=== PATIENT | female | born 2000 | race Two or more races ===

== ENCOUNTER → 2020-01-02 | Outpatient (CLI) | payer MEDICAID ==
--- NOTE | 2020-01-02 15:31 | Non Stress Test Report ---
Non Stress Test Datetime Report Generated by CPN: 01/02/2020 15:31 DEMOGRAPHIC EGA NST: 40.1 INDICATION Indication for Study (NST) Other: IUP at VITAL SIGNS Temperature - NST: 97.8 Pulse - NST: 96 RESP - NST: 18 NBPSYS NST: 111 NBPDIA NST: 70 URINE RESULTS Urine Ketones - NST: Positive MONITORING Monitor Explained: Monitor Explained; Test Explained; Patient Verbalized Understanding Time on Monitor: 01/02/2020 14:51 Time off Monitor: 01/02/2020 15:14 NST Duration: 23 NST INTERVENTIONS NST Interventions: PO Hydration Physician Notified NST: Iraida Pathak, CNM BABY A: [id number] BABY A Movement : Present Contraction Frequency : x2 FHR Baseline : 125 Accelerations : 15X15 Decelerations : None Variability : Moderate 6-25bpm NST Review: Meets Criteria for Reactive NST NST Review and Verified By : Patrica Camp RNC NST Results: Reactive NST REPORT Report Trigger: Send Report
== END ==
LOC: LC 14:43
PROVIDERS: ATTEND Obstetrics & Gynecology
DX: O48.0 Post-term pregnancy (principal); Z3A.40 40 weeks gestation of pregnancy
CPT/HCPCS: 59025

== ENCOUNTER 2020-01-07 03:03 | Outpatient (CLI) | payer MEDICAID ==
[2020-01-07 03:42] LABS: APPEARANCE,URINE CLEAR; BILIRUBIN,URINE NEGATIVE (NEGATIVE); COLOR,URINE YELLOW; GLUCOSE, URINE NEGATIVE (NEGATIVE); KETONES,URINE NEGATIVE (NEGATIVE); LEUKOCYTE ESTERASE,URINE NEGATIVE (NEGATIVE); NITRITE,URINE NEGATIVE (NEGATIVE); PROTEIN,URINE NEGATIVE (NEGATIVE); URINE SPECIFIC GRAVITY 1.015; UROBILINOGEN,URINE NEGATIVE mg/dL (<2.0)
[2020-01-07 04:03] LABS: URINE AMPHETAMINES SCREEN NEGATIVE; URINE BARBITURATES SCREEN NEGATIVE; URINE BENZODIAZEPINES SCREEN NEGATIVE; URINE COCAINE SCREEN NEGATIVE; URINE MARIJUANA (THC) SCREEN NEGATIVE; URINE METHADONE SCREEN NEGATIVE; URINE PHENCYCLIDINE SCREEN NEGATIVE
--- NOTE | 2020-01-07 04:35 | Non Stress Test Report ---
Non Stress Test Datetime Report Generated by CPN: 01/07/2020 04:34 DEMOGRAPHIC EGA NST: 40.6 INDICATION Indication for Study (NST) Other: labor check URINE RESULTS Urine Protein, NST: Negative Urine Ketones - NST: Negative Urine Glucose - NST: Negative Urine Blood - NST: Negative MONITORING Monitor Explained: Monitor Explained; Test Explained; Patient Verbalized Understanding Time on Monitor: 01/07/2020 03:27 Time off Monitor: 01/07/2020 04:29 NST INTERVENTIONS NST Interventions: PO Hydration Physician Notified NST: Simpson BABY A: [id number] BABY A Movement : Present Contraction Frequency : 2-6 FHR Baseline : 125 Accelerations : 15X15 Variability : Moderate 6-25bpm NST Review: Meets Criteria for Reactive NST NST Review and Verified By : Adán Gli RN NSMarcin Results: Reactive NST REPORT Report Trigger: Send Report
[2020-01-07 05:41] LABS: ABSOLUTE EOSINOPHILS # (AUTO) 0.1 10^3/uL (0.0-0.6); ABSOLUTE LYMPHOCYTES (AUTO) 1.9 10^3/uL (0.5-4.7); ABSOLUTE MONOCYTES (AUTO) 1.4 10^3/uL (0.1-1.4); ABSOLUTE NEUT (AUTO) 15.3 10^3/uL (1.7-8.2); BASOPHILS % (AUTO) 0.1 % (0-2); EOSINOPHILS % (AUTO) 0.5 % (0-6); HEMATOCRIT 37.6 % (36.0-47.0); HEMOGLOBIN 12.8 g/dL (12.0-15.5); LYMPHOCYTES % (AUTO) 10.2 % (13-45); MEAN CORPUSCULAR HEMOGLOBIN 30.2 pg (27.0-33.4); MEAN CORPUSCULAR HGB CONC 33.9 g/dL (32.0-36.0); MEAN CORPUSCULAR VOLUME 89 fl (80-97); MONOCYTES % (AUTO) 7.4 % (3-13); PLATELET COUNT 209 10^3/uL (150-450); RED BLOOD COUNT 4.22 10^6/uL (3.72-5.28); SEGMENTED NEUTROPHILS % (AUTO) 81.8 % (42-78); TOTAL CELLS COUNTED % (AUTO) 100 %; WHITE BLOOD COUNT 18.8 10^3/uL (4.0-10.5)
[2020-01-07 05:53] LABS: ALBUMIN 3.6 g/dL (3.5-5.0); ALKALINE PHOSPHATASE 245 U/L (38-126); ANION GAP 10 (5-19); ASPARTATE AMINO TRANSFERASE 28 U/L (14-36); BILIRUBIN,DIRECT 0.2 mg/dL (0.0-0.4); BILIRUBIN,TOTAL 0.6 mg/dL (0.2-1.3); BLOOD UREA NITROGEN 9 mg/dL (7-20); CALCIUM 9.3 mg/dL (8.4-10.2); CARBON DIOXIDE 21 mmol/L (22-30); CHLORIDE 105 mmol/L (98-107); GLUCOSE 92 mg/dL (75-110); POTASSIUM 4.2 mmol/L (3.6-5.0); TOTAL PROTEIN 6.9 g/dL (6.3-8.2); URIC ACID 5.2 mg/dL (2.5-6.2)
== END 2020-01-07 06:20 | disposition home or self-care (01) ==
LOC: LC 03:03
PROVIDERS: ATTEND Student in an Organized Health Care Education/Training Program
DX: O47.1 False labor at or after 37 completed weeks of gestation (principal); Z3A.40 40 weeks gestation of pregnancy
CPT/HCPCS: 36415; 59025; 80053; 80307; 81005; 83615; 84550; 85025

== ENCOUNTER 2020-01-08 17:59 | Outpatient (CLI) | payer MEDICAID ==
[2020-01-08 20:23] LABS: APPEARANCE,URINE CLOUDY; BILIRUBIN,URINE NEGATIVE (NEGATIVE); COLOR,URINE AMBER; GLUCOSE, URINE NEGATIVE (NEGATIVE); KETONES,URINE 20 mg/dL (NEGATIVE); LEUKOCYTE ESTERASE,URINE SMALL (NEGATIVE); NITRITE,URINE NEGATIVE (NEGATIVE); PROTEIN,URINE 100 mg/dL (NEGATIVE); URINE SPECIFIC GRAVITY 1.025
[2020-01-08 20:38] LABS: URINE AMPHETAMINES SCREEN NEGATIVE; URINE BARBITURATES SCREEN NEGATIVE; URINE BENZODIAZEPINES SCREEN NEGATIVE; URINE COCAINE SCREEN NEGATIVE; URINE MARIJUANA (THC) SCREEN NEGATIVE; URINE METHADONE SCREEN NEGATIVE; URINE PHENCYCLIDINE SCREEN NEGATIVE
[2020-01-08] MEDS ORDERED: HYDROXYZINE PAMOATE 50 MG CAPSULE ONE (22:15)
[2020-01-08] MEDS ORDERED: HYDROXYZINE PAMOATE 50 MG CAPSULE PO ONE (22:30)
--- NOTE | 2020-01-08 22:33 | Non Stress Test Report ---
Non Stress Test Datetime Report Generated by CPN: 01/08/2020 22:33 DEMOGRAPHIC EGA NST: 41.0 INDICATION Indication for Study (NST) Other: Gestational age greater than 32 weeks VITAL SIGNS Temperature - NST: 97.1 Pulse - NST: 104 RESP - NST: 17 NBPSYS NST: 124 NBPDIA NST: 73 URINE RESULTS Urine Protein, NST: Negative Urine Ketones - NST: Positive Urine Glucose - NST: Negative Urine Blood - NST: Negative MONITORING Monitor Explained: Monitor Explained; Test Explained; Patient Verbalized Understanding Time on Monitor: 01/08/2020 21:27 Time off Monitor: 01/08/2020 22:13 NST INTERVENTIONS NST Interventions: None Physician Notified NST: Dr. Aron BABY A: [id number] BABY A Movement : Present Contraction Frequency : 5-9 FHR Baseline : 125 Accelerations : 15X15 Decelerations : None Variability : Moderate 6-25bpm NST Review: Meets Criteria for Reactive NST NST Review and Verified By : Yandel Berger RN NST Results: Reactive NST REPORT Report Trigger: Send Report
== END 2020-01-08 22:22 | disposition home or self-care (01) ==
LOC: LC 17:59
PROVIDERS: ATTEND Obstetrics & Gynecology
DX: O47.1 False labor at or after 37 completed weeks of gestation (principal); O48.0 Post-term pregnancy; Z3A.41 41 weeks gestation of pregnancy
CPT/HCPCS: 59025; 81001; 80307; J3490

== ENCOUNTER 2020-01-09 04:27 | Inpatient (IN) | payer MEDICAID ==
[2020-01-09] MEDS ORDERED: RINGERS SOLUTION,LACTATED 1,000 ML IV PRN (04:38)
[2020-01-09] MEDS ORDERED: RINGERS SOLUTION,LACTATED 1,000 ML IV ONE (04:38)
[2020-01-09 05:22] LABS: HEMATOCRIT 39.2 % (36.0-47.0); HEMOGLOBIN 13.7 g/dL (12.0-15.5); MEAN CORPUSCULAR HEMOGLOBIN 30.9 pg (27.0-33.4); MEAN CORPUSCULAR HGB CONC 35.1 g/dL (32.0-36.0); MEAN CORPUSCULAR VOLUME 88 fl (80-97); PLATELET COUNT 222 10^3/uL (150-450); RED BLOOD COUNT 4.45 10^6/uL (3.72-5.28); WHITE BLOOD COUNT 17.5 10^3/uL (4.0-10.5)
[2020-01-09] MEDS ORDERED: OXYTOCIN 10 UNIT/ML VIAL ONE (05:29)
[2020-01-09] MEDS ORDERED: LIDOCAINE 1% INJ-PF (10 MG/ML) 30 ML SDV ONE (05:29)
[2020-01-09] MEDS ORDERED: MISOPROSTOL 0.2 MG TABLET ONE (05:29)
[2020-01-09] MEDS ORDERED: OXYTOCIN/0.9 % SODIUM CHLORIDE 30 UNIT/500 ML RTUINJ ONE (05:29)
[2020-01-09 05:38] LABS: ABSOLUTE LYMPHOCYTES# (MANUAL) 1.4 10^3/uL (0.5-4.7); ABSOLUTE MONOCYTES # (MANUAL) 0.4 10^3/uL (0.1-1.4); BAND NEUTROPHILS % (MANUAL) 1 % (3-5); BASOPHILS % (MANUAL) 0 % (0-2); EOSINOPHILS % (MANUAL) 0 % (0-6); LYMPHOCYTES % (MANUAL) 8 % (13-45); MONOCYTES % (MANUAL) 2 % (3-13); SEGMENTED NEUTROPHILS % (MAN) 89 % (42-78); TOTAL CELLS COUNTED 100
[2020-01-09 05:39] LABS: PLATELET COMMENT ADEQUATE; RBC MORPHOLOGY COMMENT NORMO-CYTIC/CHROMIC
[2020-01-09] MEDS ORDERED: EPHEDRINE SULFATE INJ 50 MG/1 ML AMPULE ONE (05:46)
[2020-01-09] MEDS ORDERED: ROPIVACAINE HCL 0.2% INJ/PF (2 MG/ML) 20 ML SDV ONE (05:46)
[2020-01-09] MEDS ORDERED: FENTANYL/BUPIVACAINE/NS/PF 300 MCG/150 ML RTUINJ EPI ONE (05:46)
[2020-01-09 06:19] LABS: APPEARANCE,URINE TURBID; BILIRUBIN,URINE NEGATIVE (NEGATIVE); COLOR,URINE RED; GLUCOSE, URINE NEGATIVE (NEGATIVE); KETONES,URINE TRACE mg/dL (NEGATIVE); LEUKOCYTE ESTERASE,URINE SMALL (NEGATIVE); NITRITE,URINE POSITIVE (NEGATIVE); PROTEIN,URINE 100 mg/dL (NEGATIVE); URINE SPECIFIC GRAVITY 1.008; UROBILINOGEN,URINE NEGATIVE mg/dL (<2.0)
--- NOTE | 2020-01-09 07:48 | Admission Physical ---
Datetime Report Generated by CPN: 01/09/2020 07:48 CURRENT ADMISSION Chief Complaint: Uterine Contractions; Suspected Ruptured Membranes Indication for Induction: Not Applicable Admit Impression : Postterm, Intrauterine ; Active Labor; Ruptured Membranes Admit Plan: Admit to Unit; Initiate Labor Protocol ALLERGIES Medication Allergies: No Medication Allergies: No Known Allergies (01/02/2020) Latex: No Latex Allergies Food Allergies: None Environmental Allergies: None OBSTETRICAL HISTORY EDC: 01/01/2020 00:00 : 1 Para: 0 Term: 0 : 0 SAB: 0 IAB: 0 Ectopic: 0 Livin Cesareans: 0 VBACs: 0 Multiple Births: 0 Gestational Diabetes: No Rh Sensitization: No Incompetent Cervix: No IVONNE: No Infertility: No ART Treatment: No Uterine Anomaly: No IUGR: No Hx Previous C/S: No Macrosomia: No Hx Loss/Stillborn: No PIH: No Hx : No Placenta Previa/Abruption: No Depression/PP Depression: No PTL/PROM: No Post Hemorrhage: No Current Procedures: Ultrasound; NST Obstetrical History Comments: G1- Current SEE RECORDS Alcohol: No Marijuana : No Cocaine: No Other Illicit Drugs: No Cigarettes: Never Smoker. [id number] MEDICAL HISTORY Diabetes: No Blood Transfusion: No Pulmonary Disease (Asthma, TB): No Breast Disease: No Hypertension: No Head Mechanic Surgery: No Heart Disease: No Hosp/Surgery: Yes Autoimmune Disorder: No Anesthetic Complications: No Kidney Disease: No Abnormal Pap Smear: No Neuro/Epilepsy: No Psychiatric Disorders: No Other Medical Diseases: No Hepatitis/Liver Disease: No Significant Family History: No Varicosities/Phlebitis: No Trauma/Violence : No Thyroid Dysfunction: No Medical History Comments: [place] teeth INFECTIOUS HISTORY Gonorrhea: No Genital Herpes: No Chlamydia: No Tuberculosis: No Syphilis: No Hepatitis: No HIV/AIDS Exposure: No Rash or Viral Illness: No HPV: No PHYSICAL EXAM General: Normal HEENT: Normal Neurologic: Normal Thyroid: Normal Heart: Normal Lungs: Normal Breast: Normal Back: Normal Abdomen: Normal Genitourinary Exam: Normal Extremities: Normal DTRs: Normal Pelvic Type: Adequate Vital Signs: Reviewed VAGINAL EXAM Dilatation: 5 Effacement: 100 Station: -1 MEMBRANES Pooling: Positive Membranes: Ruptured Amniotic Fluid Color: Clear FETUS A EGA: 41.1 Monitoring: External US FHR- Baseline: 120 Variability: Moderate 6-25bpm Accelerations: 15X15 Decelerations: None FHR Category: Category I Estimated Weight (gm): 3600 Presentation: Vertex PLANS FOR LABOR AND DELIVERY Labor and Delivery: None Pain Management: Epidural Feeding Preference: Breast Benefit of Breast Feed Discussed: Yes Circumcision: Yes INFORMED CONSENT Signature: with User ID: [email or web address]
[2020-01-09] MEDS ORDERED: ZOLPIDEM TARTRATE 5 MG TABLET PO PRN (12:48)
[2020-01-09] MEDS ORDERED: GLYCERIN/WITCH HAZEL LEAF 1 EACH MED..WIPE TP PRN (12:48)
[2020-01-09] MEDS ORDERED: DIBUCAINE 1% OINTMENT 28 GM TP PRN (12:48)
[2020-01-09] MEDS ORDERED: PROMETHAZINE HCL 25 MG SUPP.RECT PR PRN (12:48)
[2020-01-09] MEDS ORDERED: ACETAMINOPHEN WITH CODEINE #3 TABLET PO PRN ×2 (12:48)
[2020-01-09] MEDS ORDERED: MAGNESIUM HYDROXIDE SUSP 30 ML UDCUP PO PRN (12:48)
[2020-01-09] MEDS ORDERED: DIPHENHYDRAMINE HCL 25 MG CAPSULE PO PRN (12:48)
[2020-01-09] MEDS ORDERED: PSEUDOEPHEDRINE HCL 30 MG TABLET PO PRN (12:48)
[2020-01-09] MEDS ORDERED: PROMETHAZINE HCL INJ 25 MG/1 ML VIAL IV PRN (12:48)
[2020-01-09] MEDS ORDERED: NA PHOS,M-B/NA PHOS,DI-BA (ADULT) 133 ML ENEMA PR PRN (12:48)
[2020-01-09] MEDS ORDERED: DIPH/PERTUSS(ACELL)/TETANUS VAC/PF 0.5 ML SYR (>=10YO) IM PRN (12:48)
[2020-01-09] MEDS ORDERED: PROMETHAZINE HCL 25 MG TABLET PO PRN (12:48)
[2020-01-09] MEDS ORDERED: MEASLES,MUMPS&RUBELLA VACC/PF 0.5 ML VIAL SUBCUT PRN (12:48)
[2020-01-09] MEDS ORDERED: BENZOCAINE/MENTHOL AEROSOL SPRAY 56 ML TOP PRN (12:48)
[2020-01-09] MEDS ORDERED: ACETAMINOPHEN 650 MG SUPP.RECT PR PRN (12:48)
--- NOTE | 2020-01-09 13:32 | Delivery Summary ---
Del Sum A-C Datetime Report Generated by CPN: 01/09/2020 13:32 DELIVERY PERSONNEL DELIVERY PERSONNEL: [id number] Delivery Doctor:: Sal Brown MD Labor and Delivery Nurse:: Juliana Colbert RN Nursery Nurse:: Madeline Smith RN Nursery Nurse:: Marsha Bazzi RN Pathology Secretary/ASSEMBLER [employer]: Ameena Lutz CST Pathology Secretary/ASSEMBLER [employer]ODUCTS: Carolyn Cárdenas, CAR FERRY CAPTAIN MATERNAL INFORMATION Delivery Anesthesia: Epidural Medications After Delivery: Pitocin 30 Units in 500ml NS/D5W; Cytotec 1000mcg Per Rectum/Vagina Delivery QBL: 300 Maternal Complications: None LABOR SUMMARY EDC: 01/01/2020 00:00 No. Babies in Womb: 1 Attempted: No Labor Anesthesia: Epidural LABOR INFORMATION Reason for Induction: Not Applicable Onset of Labor: 01/09/2020 04:00 Complete Dilatation: 01/09/2020 09:51 Oxytocin: N/A Group B Beta Strep: negative Antibiotics # of Doses: n/a Name of Antibiotic Given: n/a Steroids Given: None Reason Steroids Not Administered: Not Applicable MEMBRANES Membranes Rupture Method: Spontaneous Rupture of Membranes: 01/09/2020 04:00 Length of Rupture (hr): 7.12 Amniotic Fluid Color: Clear Amniotic Fluid Amount: Moderate Amniotic Fluid Odor: Normal STAGES OF LABOR Stage 1 hr: 5 Stage 1 min: 51 Stage 2 hr: 1 Stage 2 min: 16 Stage 3 hr: 0 Stage 3 min: 4 Total Time in Labor hr: 7 Total Time in Labor min: 11 VAGINAL DELIVERY Episiotomy: None Laceration #1: Perineal Laceration Extension #1: First Degree Laceration Repair: Yes Laceration Repair Note: repared in layers with 2-0 vicryl Sponge Count Correct: Yes Sharps Count Correct: Yes BABY A INFORMATION Infant Delivery Date/Time: 01/09/2020 11:07 Method of Delivery: Vaginal Born in Route : No : N/A Forceps: N/A Vacuum Extraction: N/A Shoulder Dystocia : No PRESENTATION/POSITION BABY A Presentation: Cephalic Cephalic Presentation: Vertex Vertex Position: Left Occipital Anterior Breech Presentation: N/A PLACENTA INFORMATION BABY A Placenta Delivery Time : 01/09/2020 11:11 Placenta Method of Delivery: Spontaneous Placenta Status: Delivered SCORES BABY A Heart Rate 1 min: >100 bpm Resp Effort 1 min: Good Cry Reflex Irritability 1 min: Cough or Sneeze or Pulls Away Muscle Tone 1 min: Active Motion Color 1 min: Blue/Pale Resuscitation Effort 1 min: Tactile Stimulation SCORE 1 MIN: 8 Heart Rate 5 min: >100 bpm Resp Effort 5 min: Good Cry Reflex Irritability 5 min: Cough or Sneeze or Pulls Away Muscle Tone 5 min: Active Motion Color 5 min: Blue/Pale Resuscitation Effort 5 min: Tactile Stimulation; Oxygen SCORE 5 MIN: 8 INFANT INFORMATION BABY A Gestational Age at Delivery: 41.1 Gestational Status: Late Term- 41- 41.6 Weeks Outcome : Liveborn Infant Condition : Stable Sex: Male IDENTIFICATION BABY A Verification Date/Time: 01/09/2020 12:01 ID Band Number: [id number] Mother's Name Verified: Yes Infant RN Verifying Infant: Stan, RN and L. Moshe, RN WEIGHT/LENGTH BABY A Birthweight (gm): 3237 Weight (lb): 7 Infant Weight (oz): 2 Length (in): 20.25 Infant Length (cm): 51.44 CORD INFORMATION BABY A No. Cord Vessels: 3 Nuchal Cord : N/A Nuchal Cord- Other: Body Cord Blood Taken: No-Annotate Suction: None (Annotations: Data stored by [facility] on behalf of user) ASSESSMENT BABY A Physical Findings at Delivery: Within Normal Limits Respirations: Grunting Skin to Skin: Yes Skin to Skin Time (min): 2 BABY B INFORMATION : N/A SIGNATURES Signature: with User ID: [email or web address]
--- NOTE | 2020-01-09 13:33 | Birth Certificate Data ---
Cert Data Datetime Report Generated by [employer]: 01/09/2020 13:32 CERTIFICATE DATA 47a. Care: Yes (01/02/2020 14:46:Stephany Berger RN) 47b. Date of First Visit: 07/21/2019 00:00 (01/02/2020 14:46:Stephany Berger RN) 47c. Date of Last Visit: 01/05/2020 00:00 (01/02/2020 14:46:KELLY So) 47d. Number of Visits: 6 (01/02/2020 14:46:KELLY So) 48a. Number of Prev Live Births: 0 (01/02/2020 14:46:Stephany Berger RN) 48b. Now Livin (01/02/2020 14:46:Juliana Colbert RN) 48c. Live Births Now : 0 (01/02/2020 14:46:QS system process) 48e. Losses: 0 (01/02/2020 14:46:Stephany Berger RN) RISK FACTORS IN THIS 49a. Diabetes: No (01/02/2020 14:46:Fabio Franco RN) 49b. Hypertension: No (01/02/2020 14:46:Fabio Franco RN) Type of Hypertension: Chronic (01/02/2020 14:46:Fabio Franco RN) 49c. Previous Births: 0 (01/02/2020 14:46:Juliana Colbert RN) 49d. Stillborns: No (01/02/2020 14:46:Fabio Franco RN) 49d. IUGR: No (01/02/2020 14:46:Fabio Franco RN) 49e. Infertility Treatment: No (01/02/2020 14:46:Fabio Franco RN) 49f. Previous Cesareans: 0 (01/02/2020 14:46:Stephany Berger RN) Mother's Height 50b. Height Inches: 60 (01/02/2020 14:58:QS system process) Mother's Weight 51a. Pre- Weight (lbs): 123 (01/02/2020 14:46:Stephany Berger RN) 51b. Weight at Delivery (lbs): 150 (01/09/2020 04:40:QS system process) 52. Dt Last Normal Menses Began: 03/27/2019 00:00 (01/02/2020 14:46:Juliana Colbert RN) Infections Present/Treated 53a. Gonorrhea: No (01/02/2020 14:46:Fabio Franco RN) Results this Hospital Visit : Negative (01/02/2020 14:46:Juliana Colbert RN) 53b. Syphilis: No (01/02/2020 14:46:Fabio Franco RN) Results this Hospital Visit: NONREACTIVE (01/09/2020 05:00:QS system process) 53c. Chlamydia: No (01/02/2020 14:46:Fabio Franco RN) Results this Hospital Visit: Negative (01/02/2020 14:46:Juliana Colbert RN) 53d. Hepatitis B: No (01/02/2020 14:46:Fabio Franco RN) Results this Hospital Visit: Negative (01/02/2020 14:46:Fabio Franco RN) 53e. Hepatitis C: Negative (01/02/2020 14:46:Denae Yang RN) 53h. Mother Tested for HBsAG: Yes (01/02/2020 14:46:Denae Yang RN) 53i. Date Tested: 06/09/2019 00:00 (01/02/2020 14:46:Denae Yang RN) 53j. Test Result: Negative (01/02/2020 14:46:Fabio Franco RN) Obstetric Procedures 54a, b, c. Obstetric Procedures: Ultrasound; NST (01/02/2020 14:46:Fabio Franco RN) Cigarette Smoking 55a. 3 Months Before Preg - Ci (01/02/2020 14:46:Fabio Franco RN) 55a. Packs: 0 (01/02/2020 14:46:Fabio Franco RN) 55b. 1st Trimester of Preg- Ci (01/02/2020 14:46:Fabio Franco RN) 55b. Packs: 0 (01/02/2020 14:46:Fabio Franco RN) 55c. 2nd Trimester of Preg- Ci (01/02/2020 14:46:Fabio Franco RN) 55c. Packs: 0 (01/02/2020 14:46:Fabio Franco RN) 55d. 3rd Trimester of Preg- Ci (01/02/2020 14:46:Fabio Franco RN) 55d. Packs: 0 (01/02/2020 14:46:Fabio Franco RN) Onset of Labor 56a. PROM >12 Hrs: 7.12 (01/02/2020 14:46:QS system process) 56b. Precipitous Labor <3 Hrs: 7 (01/02/2020 14:46:QS system process) 56c. Prolonged Labor > 20 Hrs: 7 (01/02/2020 14:46:QS system process) 57a. Induction of Labor: N/A (01/02/2020 14:46:Juliana Colbert RN) 57c. Non-Vertex Presentation A: Vertex (01/02/2020 14:46:Juliana Colbert RN) 57d. Steroids - Lung Mat: None (01/02/2020 14:46:Stephany Berger RN) 57d. Steroids - Lung Mat: Not Applicable (01/02/2020 14:46:Stephany Berger RN) 57f. Mat [place] or Temp >100.4: 98.6 (01/02/2020 14:46:Juliana Colbert RN) 57g. Moderate/Heavy Meconium: Clear (01/02/2020 14:46:Stephany Berger RN) 57i. Epidural/Spinal Anesthesia: Epidural (01/02/2020 14:46:Juliana Colbert RN) Method of Delivery 58a. Forceps - Unsuccessful A: N/A (01/02/2020 14:46:Juliana Colbert RN) 58b. Vacuum - Unsuccessful A: N/A (01/02/2020 14:46:Juliana Colbert RN) 58c. Presentation at 58c. Presentation at - A : Vertex (01/02/2020 14:46:Juliana Colbert RN) 58c. Presentation at - A : N/A (01/02/2020 14:46:Juliana Colbert RN) 58c. Presentation at - A : Cephalic (01/08/2020 18:18:Fabio Franco RN) Final Route and Method of Del 58d. Baby A Route/Delivery: Vaginal (01/09/2020 11:07:Juliana Colbert RN) 58e. Trial of Labor Attempted: No (01/02/2020 14:46:Stephany Berger RN) 58e. Trial of Labor Attempted A: N/A (01/02/2020 14:46:Stephany Berger RN) 58e. Trial of Labor Attempted B: N/A (01/02/2020 14:46:Stephany Berger RN) Maternal Morbidity 59b. 3rd or 4th Degree Lacs: Perineal (01/02/2020 14:46:Sal Brown MD ([facility])) Birthweight Baby A: 3237 (01/02/2020 14:46:Juliana Feuston, RN) 60a. Pounds : 7 (01/02/2020 14:46:QS system process) 60b. Ounces: 2 (01/02/2020 14:46:QS system process) 61. GA at Delivery Baby A: 41.1 (01/02/2020 14:46:Juliana Feuston, RN) : Late Term- 41- 41.6 Weeks (01/02/2020 14:46:QS system process) 62a. 5 Minute Baby A: 8 (01/02/2020 14:46:QS system process)
[2020-01-09] MEDS: IBUPROFEN 800 MG TABLET PO SCH ×2 (14:29→21:43)
[2020-01-09] MEDS: FERROUS SULFATE 325 MG TABLET PO SCH (17:26)
[2020-01-09] MEDS: DOCUSATE SODIUM 100 MG CAPSULE PO SCH (17:26)
[2020-01-09] MEDS: FAMOTIDINE 20 MG TABLET PO SCH (21:43)
[2020-01-10] MEDS: IBUPROFEN 800 MG TABLET PO SCH ×3 (05:10→21:52)
[2020-01-10 07:52] LABS: HEMATOCRIT 34.3 % (36.0-47.0); HEMOGLOBIN 11.8 g/dL (12.0-15.5); MEAN CORPUSCULAR HEMOGLOBIN 30.8 pg (27.0-33.4); MEAN CORPUSCULAR HGB CONC 34.3 g/dL (32.0-36.0); MEAN CORPUSCULAR VOLUME 90 fl (80-97); PLATELET COUNT 212 10^3/uL (150-450); RED BLOOD COUNT 3.82 10^6/uL (3.72-5.28); WHITE BLOOD COUNT 14.7 10^3/uL (4.0-10.5)
--- NOTE | 2020-01-10 09:26 | PDOC PROGRESS REPORT ---
Subjective-OB Progress Note for:: 01/10/20 - PP Day #1, doing well, UOB, voiding, , O negative/ baby is A+. Needs Rhogam. Physical Exam (OB) Vital Signs: Temp Pulse Resp BP Pulse Ox 97.7 F 56 L 16 107/63 100 01/10/20 07:43 01/10/20 07:43 01/10/20 07:43 01/10/20 07:43 01/10/20 07:43 Intake & Output 01/09/20 01/10/20 01/11/20 06:59 06:59 06:59 Intake Total 240 Balance 240 Weight 67.9 kg - General General Appearance: Appears well, Alert In distress: None - PIH/Pre-Eclampsia DTR's: 2 + Clonus: Negative Headache: Absent Epigastric Pain: No Visual Changes: No - Maternal Morbidity 59. Maternal Morbidity (serious complications experinced by the mother associated with labor and delivery: None of the above - Lochia Lochia Amount: Scant < 10 ml Lochia Color: Rubra/Red - Abdomen Description: Soft Hernia Present: No Fundal Description: Firm, Midline Fundal Height: u/u - u/2 - Respiratory Respiratory Status: No respiratory distress - Abdominal Inspection: Normal Distension: No distension - Genitourinary Genitourinary Note: voiding - Extremities Upper extremity: Normal inspection Lower extremities: Normal inspection - Neurological Cognition: Normal Orientation: AAOx4 - Psychological Associated symptoms: Normal affect, Normal mood - Skin Skin Temperature: Warm Skin Moisture: Dry Objective-Diagnostic Laboratory: 01/10/20 07:25 01/10/20 01/10/20 07:25 07:25 WBC 14.7 H RBC 3.82 Hgb 11.8 L Hct 34.3 L MCV 90 MCH 30.8 MCHC 34.3 RDW 13.0 Plt Count 212 Blood Type O NEGATIVE Assessment and Plan(PN) - Assessment and Plan (1) (normal spontaneous vaginal delivery) Is this a current diagnosis for this admission?: Yes (2) Rh negative status during Qualifiers: Trimester: third trimester Qualified Code(s): O26.893 - Other specified related conditions, third trimester; Z67.91 - Unspecified blood type, Rh negative Is this a current diagnosis for this admission?: Yes Plan:: Routine PP orders, ambulation encouraged. - Time Spent with Patient Time with patient: Less than 15 minutes Medications reviewed and adjusted accordingly: Yes - Disposition Anticipated Discharge Disposition: Home, Self Care Anticipated Discharge Timeframe: within 24 hours
[2020-01-10] MEDS: FERROUS SULFATE 325 MG TABLET PO SCH ×2 (10:34→17:34)
[2020-01-10] MEDS: SENNOSIDES/DOCUSATE 8.6-50 MG 1 EACH TABLET PO SCH (10:34)
[2020-01-10] MEDS: PRENATAL VITAMIN W DHA CAPSULE PO SCH (10:34)
[2020-01-10] MEDS: DOCUSATE SODIUM 100 MG CAPSULE PO SCH ×2 (10:35→17:34)
[2020-01-10] MEDS: FAMOTIDINE 20 MG TABLET PO SCH ×2 (10:35→21:52)
[2020-01-11] MEDS: IBUPROFEN 800 MG TABLET PO SCH ×2 (05:15→15:12)
[2020-01-11 08:22] VITALS: BP 112/56
[2020-01-11] MEDS: FAMOTIDINE 20 MG TABLET PO SCH (09:48)
[2020-01-11] MEDS: PRENATAL VITAMIN W DHA CAPSULE PO SCH (09:48)
[2020-01-11] MEDS: FERROUS SULFATE 325 MG TABLET PO SCH (09:49)
[2020-01-11] MEDS: SENNOSIDES/DOCUSATE 8.6-50 MG 1 EACH TABLET PO SCH (09:49)
[2020-01-11] MEDS: DOCUSATE SODIUM 100 MG CAPSULE PO SCH (09:49)
--- NOTE | 2020-01-11 13:43 | PDOC DISCHARGE SUMMARY ---
Impression - Admit/DC Date/PCP Admission Date/Primary Care Provider: 01/09/20 04:56 EMILIA ROSS MD Discharge Date: 01/11/20 - Discharge Diagnosis (1) (normal spontaneous vaginal delivery) Is this a current diagnosis for this admission?: Yes (2) Perineal laceration during delivery, delivered Is this a current diagnosis for this admission?: Yes (3) Rh negative status during Is this a current diagnosis for this admission?: Yes - Assessment Summary: 19yo s/p vaginal delivery ppd2 - stable and ready for discharge, understands warning s/s - Additional Information Resuscitation Status: Full Code Discharge Diet: As Tolerated, Regular Discharge Activity: Activity As Tolerated, Balance Activity w/Rest, No Lifting Over 10 Pounds, Pelvic Rest, No tub bath Referrals: EMILIA ROSS MD [Primary Care Provider] - Prescriptions: Ibuprofen [Motrin 800 mg Tablet] 800 mg PO Q8HP PRN #20 tablet PRN Reason: For Pain Scale 1-3 Home Medications: Pnv No.95/Ferrous Fum/Folic AC [ Caplet] 1 each PO DAILY 01/02/20 Ibuprofen [Motrin 800 mg Tablet] 800 mg PO Q8HP PRN #20 tablet 01/11/20 Hospital Course 59. Maternal Morbidity (serious complications experinced by the mother associated with labor and delivery: None of the above Results Laboratory Results: WBC 14.7 10^3/uL (4.0-10.5) H 01/10/20 07:25 RBC 3.82 10^6/uL (3.72-5.28) 01/10/20 07:25 Hgb 11.8 g/dL (12.0-15.5) L 01/10/20 07:25 Hct 34.3 % (36.0-47.0) L 01/10/20 07:25 MCV 90 fl (80-97) 01/10/20 07:25 MCH 30.8 pg (27.0-33.4) 01/10/20 07:25 MCHC 34.3 g/dL (32.0-36.0) 01/10/20 07:25 RDW 13.0 % (11.5-14.0) 01/10/20 07:25 Plt Count 212 10^3/uL (150-450) 01/10/20 07:25 Lymph % (Auto) Not Reportable 01/09/20 05:00 [place] % (Auto) Not Reportable 01/09/20 05:00 Eos % (Auto) Not Reportable 01/09/20 05:00 Baso % (Auto) Not Reportable 01/09/20 05:00 Absolute Neuts (auto) Not Reportable 01/09/20 05:00 Absolute Lymphs (auto) Not Reportable 01/09/20 05:00 Absolute Monos (auto) Not Reportable 01/09/20 05:00 Absolute Eos (auto) Not Reportable 01/09/20 05:00 Absolute Basos (auto) Not Reportable 01/09/20 05:00 Total Counted 100 01/09/20 05:00 Seg Neutrophils % Not Reportable 01/09/20 05:00 Seg Neuts % (Manual) 89 % (42-78) H 01/09/20 05:00 Band Neutrophils % 1 % (3-5) L 01/09/20 05:00 Lymphocytes % (Manual) 8 % (13-45) L 01/09/20 05:00 Monocytes % (Manual) 2 % (3-13) L 01/09/20 05:00 Eosinophils % (Manual) 0 % (0-6) 01/09/20 05:00 Basophils % (Manual) 0 % (0-2) 01/09/20 05:00 Abs Neuts (Manual) 15.8 10^3/uL (1.7-8.2) H 01/09/20 05:00 Abs Lymphs (Manual) 1.4 10^3/uL (0.5-4.7) 01/09/20 05:00 Abs Monocytes (Manual) 0.4 10^3/uL (0.1-1.4) 01/09/20 05:00 Absolute Eos (Manual) 0.0 10^3/uL (0.0-0.6) 01/09/20 05:00 Abs Basophils (Manual) 0.0 10^3/uL (0.0-0.2) 01/09/20 05:00 Platelet Comment ADEQUATE 01/09/20 05:00 RBC Morph Comment NORMO-CYTIC/CHROMIC 01/09/20 05:00 Urine Color RED 01/09/20 05:31 Urine Appearance TURBID 01/09/20 05:31 Urine pH 8.0 (5.0-9.0) 01/09/20 05:31 Ur Specific [place] 1.008 01/09/20 05:31 Urine Protein 100 mg/dL (NEGATIVE) H 01/09/20 05:31 Urine Glucose (UA) NEGATIVE mg/dL (NEGATIVE) 01/09/20 05:31 Urine Ketones TRACE mg/dL (NEGATIVE) H 01/09/20 05:31 Urine Blood MODERATE (NEGATIVE) H 01/09/20 05:31 Urine Nitrite POSITIVE (NEGATIVE) H 01/09/20 05:31 Urine Bilirubin NEGATIVE (NEGATIVE) 01/09/20 05:31 Urine Urobilinogen NEGATIVE mg/dL (<2.0) 01/09/20 05:31 Ur Leukocyte Esterase SMALL (NEGATIVE) H 01/09/20 05:31 Urine Ascorbic Acid NEGATIVE (NEGATIVE) 01/09/20 05:31 Urine Opiates Screen Cancelled 01/09/20 05:31 Urine Methadone Screen Cancelled 01/09/20 05:31 Ur Barbiturates Screen Cancelled 01/09/20 05:31 Ur Phencyclidine Scrn Cancelled 01/09/20 05:31 Ur Amphetamines Screen Cancelled 01/09/20 05:31 U Benzodiazepines Scrn Cancelled 01/09/20 05:31 Urine Cocaine Screen Cancelled 01/09/20 05:31 U Marijuana (THC) Screen Cancelled 01/09/20 05:31 RPR NONREACTIVE (NONREACTIVE) 01/09/20 05:00 Blood Type O NEGATIVE 01/10/20 07:25 Antibody Screen POSITIVE 01/09/20 05:00 Antibody Identification RHOGAM INDUCED ANTI-D 01/09/20 05:00 Screen NEGATIVE 01/10/20 07:25
== END 2020-01-11 15:59 | disposition home or self-care (01) | DRG 807 ==
LOC: LC 04:27 → LR 04:56 → 2S 14:01
PROVIDERS: ADMIT Obstetrics & Gynecology Gynecology; ATTEND Obstetrics & Gynecology Gynecology
PROC: 10E0XZZ Delivery of Products of Conception, External Approach (ICD-10-PCS; principal; 2020-01-09)
PROC: 0HQ9XZZ Repair Perineum Skin, External Approach (ICD-10-PCS; 2020-01-09)
PROC: 3E0234Z Introduction of Serum, Toxoid and Vaccine into Muscle, Percutaneous Approach (ICD-10-PCS; 2020-01-11)
DX: O48.0 Post-term pregnancy (principal); Z37.0 Single live birth; O26.893 Other specified pregnancy related conditions, third trimester; O70.0 First degree perineal laceration during delivery; Z67.41 Type O blood, Rh negative; Z3A.41 41 weeks gestation of pregnancy
CPT/HCPCS: 1967; 36415; 81005; 85025; 85027; 85461; 86592; 86850; 86870; 86900; 86901; 94760; J2590; J2790; J2795; J3010; J3490